=== PATIENT | male | born 1975 | race Caucasian/White ===

== ENCOUNTER 2020-02-28 11:09 | Emergency (ER) | payer OTHER ==
[~2020-02-28] VITALS: Ht 162.6 cm; Wt 77.1 kg
[2020-02-28] MEDS ORDERED: VOLTAREN-XR100 MG PO (16:06)
[2020-02-28] MEDS ORDERED: PERCOCET 5-3251 EACH PO (16:06)
== END 2020-02-28 16:14 ==
LOC: ER 11:09
DX: S93.491A Sprain of other ligament of right ankle, initial encounter (principal); X50.0XXA Overexertion from strenuous movement or load, initial encounter; Y93.B9 Activity, other involving muscle strengthening exercises; Y92.89 Other specified places as the place of occurrence of the external cause; Y99.8 Other external cause status